=== PATIENT | male | born 1970 | race African-American/Black ===

== ENCOUNTER → 2016-07-28 | Outpatient (CLI) | payer OTHER ==
[~2016-07-28] MED LIST: PROAIR HFA8.5 GM INH; REGADENOSON 0.4 MG/5 ML DISP.SYRIN. IV ONE
--- NOTE | 2016-07-28 11:38 | RAD ---
APPROVED REPORT Test Type: Pharmacological Stress Nurse/Tech: Vivian Bertrand RN Test Indications: chest pain Cardiac History: See Electronic Medical Record, High cholesterol, Family history Medications: See Electronic Medical Record Medical History: See Electronic Medical Record Resting ECG: SR Resting Heart Rate: 68 bpm Resting Blood Pressure: 136/89mmHg Pretest Chest Pain: No chest pain Nurse/Tech Notes S1S2, Lungs CTA, denies CP or SOA Consent: The procedure was explained to the patient in lay terms. Informed consent was witnessed. Jim eout was entered into [employer]. History and Stress Test performed by RT Christina (R) (N) Pharm. Details Pharmacologic stress testing was performed using 0.4mg per 5ml of regadenoson given intravenously ove r 7-10 seconds. Stress Symptoms No chest pain or symptoms. POST EXERCISE Reason for Termination: Infusion complete Max HR: 105 bpm Max Blood Pressure: 151/89mmHg Blood Pressure response to exercise: Normal blood pressure response during stress. Heart Rate response to exercise: WNL Chest Pain: No. Arrhythmia: No. Occas PVC noted ST Change: No. INTERPRETATION Stress EKG Conclusion: No evidence of stress induced EKG changes. Imaging Protocol IMAGE PROTOCOL: Rest Tc-99m/stress Tc-99m 1 day Rest: Stress: Viability: Radiopharm.Tc99m [id number] Sestamibi [id number] 33.1mCi Duration 15min. 10min. Img Date 07/28/2016 07/28/2016 Inj-Img [id number]. 60min. Rest Admin Site:IV - Left AntecubitalAdministrator:LUCIE Ewing, ASHUTOSH (R)(N) Stress Admin Site: IV - Left AntecubitalAdministrator: RT Christina (R)(N) STRESS DATA End Diast. Vol.132.0mlAv. Heart Rate77.0bpm End Syst. Vol.28.0mlCO Index BSA0.0L/min Myocardial Nylp436.0gEject. Coveexts40.0% Stress Rates Pk. Fill Rate3.41EDV/secLVtime Pk. Fill 127.46msec Pk. Empty Rate3.85ESV/secLVtime Pk. Rclxm435.29msec 03/29 Pk. Fill1.85EDV/sec Stress Scores Regional WT0.00Summed WT6.00 Regional WM0.00Summed WM0.00 The rest and stress images show normal perfusion, normal contraction and thickening. LV Perf. Quant 17 Seg. SSS0.00 17 Seg. SRS0.00 17 Seg. SDS0.00 Stress Defect Extent (% LAD)0.00Rest Defect Extent (% LAD)0.00Rev. Defect Extent (% LAD)0.00 Stress Defect Extent (% LCX) 5.00Rest Defect Extent (% LCX)0.00Rev. Defect Extent (% LCX)0.00 Stress Defect Extent (% RCA)0.00Rest Defect Extent (% RCA)0.00Rev. Defect Extent (% RCA)0.00 Stress Defect Extent (% EMMY)0.90Rest Defect Extent (% EMMY)0.00Rev. Defect Extent (% EMMY)0.00 Other Information Quality:Good Risk Assessment: Low Risk Conclusion 1. No evidence of stress induced EKG changes 2. Normal myocardial perfusion at stress/rest. 3. Low risk study. EF > 70%
== END | disposition home or self-care (01) ==
LOC: NM 07:24
PROVIDERS: ATTEND Internal Medicine
DX: R07.9 Chest pain, unspecified (principal); R10.9 Unspecified abdominal pain; R19.7 Diarrhea, unspecified
CPT/HCPCS: 78452; 93017; 96374; 96375; 96376; A9500; J2785